=== PATIENT | female | born 1955 | race Caucasian/White ===

== ENCOUNTER → 2016-12-28 | Outpatient (CLI) | payer OTHER ==
[2014-04-28 12:15] VITALS: BP 121/74
--- NOTE | 2016-12-28 16:25 | MG ---
Examination: Bilateral screening mammogram. Clinical history: Routine screening. Technique: Digital CC and MLO views of both breasts were obtained. Implant displaced views of both b reasts were also obtained. Computer aided detection analysis was performed and used during the inter pretation. Comparison: 07/15/2014. Findings: The breasts are composed of scattered fibroglandular densities. A left saline prosthesis is normal i n appearance. There is stable complete deflation of the right breast prosthesis, which is not visual ized. Benign-appearing calcifications are noted in the breasts bilaterally. Benign-appearing densiti es are present in the right breast. No suspicious mass, area of architectural distortion or suspicious cluster of microcalcifications is noted. Impression: 1. No mammographic evidence of malignancy. BI-RADS category 2-benign findings. Recommend routine annual screening mammogram. Diagnostic CAD was utilized and reviewed. * 0 (ZERO) - ASSESSMENT INCOMPLETE; ADDITIONAL IMAGING IS NEEDED. * 0C - ASSESSMENT INCOMPLETE, NEEDS ADDITIONAL IMAGING EVALUATION AND/OR PRIOR MAMMOGRAMS FOR COMPAR ESTHER. * 1/1 (ONE) - NEGATIVE. * 2/II (TWO) - BENIGN FINDINGS. * 3/III (THREE) - PROBABLY BENIGN FINDING; SHORT INTERVAL FOLLOW-UP SUGGESTED. * 4/IV (FOUR) - SUSPICIOUS ABNORMALITY; BIOPSY SHOULD BE CONSIDERED. * 5/V - HIGHLY SUSPICIOUS OF MALIGNANCY; BIOPSY SHOULD BE PERFORMED. * 6/IV - KNOWN BIOPSY PROVEN MALIGNANCY-APPROPRIATE ACTION SHOULD BE TAKEN. A NEGATIVE X-RAY REPORT SHOULD NOT DELAY BIOPSY IF A DOMINANT OR CLINICALLY SUSPICIOUS MASS IS PRESENT; 4 TO 8 PERCENT OF CANCERS ARE NOT IDENTIFIED BY X-RAY. A NEGATIVE REPORT MAY REINFORCE THE CLINICAL IMPRESSION. ADENOSIS AND DENSE BREASTS MAY OBSCURE AN UNDERLYING NEOPLASM. Reported By:
== END ==
LOC: RAD 10:28
PROVIDERS: ATTEND Internal Medicine
DX: Z12.31 Encounter for screening mammogram for malignant neoplasm of breast (principal)
CPT/HCPCS: 77067

== ENCOUNTER → 2017-03-14 | Outpatient (CLI) | payer OTHER ==
[2014-04-28 12:15] VITALS: BP 121/74
[2017-03-14 10:05] LABS: CREATININE 0.58 mg/dL (0.55-1.02)
--- NOTE | 2017-03-14 12:18 | MRI ---
HISTORY: Low back pain, radiculopathy, history of schwannoma Study: MRI lumbar spine with and without contrast Comparison: Technique: Multiplanar multi-sequence pre and post-contrast MRI of the lumbar spine was obtained. S agittal T1, sagittal T2, and stir weighted images, axial T1, and axial T2 images were obtained. Axia l and sagittal post-contrast T1 weighted images were obtained. Findings: The lumbar spine demonstrates normal alignment with the expected signal characteristics of the bone marrow. The conus of the cord terminates normally. T12 -- L1: No evidence for compressive disc disease. The neural foramina are patent. The joints are normal. L1 -- L2: No evidence for compressive disc disease. The neural foramina are patent. The joints are n ormal. L2 -- L3: No evidence for compressive disc disease. The neural foramina are patent. The joints are n ormal. However, lateral and inferior to the right neural foramen. There is an enhancing 1.9 x 1.8 ce ntimeter mass likely representing a schwannoma. The schwannoma is best visualize on series 1201 axia l images 16 through 23. L3 -- L4: No evidence for compressive disc disease. The neural foramina are patent. The joints are n ormal. L4 -- L5: No evidence for compressive disc cubic centimeters. The neural foramina are patent. The buffy ints are normal. L5 -- S1: No evidence for compressive disc disease. The neural foramina are patent. The joints are n ormal. IMPRESSION: 1.9 x 1.8 centimeter enhancing mass slightly lateral and inferior to the right neural foramen at L2- 3 most likely representing a schwannoma No evidence for compressive disc disease or compresses spondylitic change at any level Reported By:
== END ==
LOC: RAD 09:29
PROVIDERS: ATTEND Internal Medicine
DX: M54.17 Radiculopathy, lumbosacral region (principal)
CPT/HCPCS: 36415; 72158; 82565; 84520